=== PATIENT | male | born 1955 | race Caucasian/White ===

== ENCOUNTER 2019-12-14 17:19 | Inpatient (IN) | payer MEDICARE, MEDICAID ==
[2019-12-14] MEDS ORDERED: Maalox 30 mL Cup PO PRN (21:08)
[2019-12-14] MEDS ORDERED: Magnesium Hydroxide (MOM) 30 mL UDC PO PRN (21:08)
[2019-12-15 06:38] VITALS: BP 137/87
[2019-12-15] MEDS: Multivitamin Tab PO SCH (09:19)
--- NOTE | 2019-12-15 18:24 | Psychiatric Evaluation ---
DATE OF SERVICE: 12/15/2019 JUSTIFICATION FOR HOSPITALIZATION: The patient was apparently threatening towards family. HISTORY OF PRESENT ILLNESS: A 64-year-old male who states he is here for "vacation time," attested being aggressive at home, being aggressive towards family, upset with daughter, daughter upset with him. Stating his daughter put him here, "she was angry." She knows the system, not the best historian, unclear what the fight was all about, not really telling me much, just telling me that he was angry and upset and daughter got mad at him. Staff is noting he is preoccupied, unpredictable. PAST PSYCHIATRIC HISTORY: Denies. FAMILY HISTORY: Unclear. SOCIAL HISTORY: States he was born in [facility]. , living in [place] with , daughter. Erratic use of THC, but per charting noting cocaine, meth, alcohol as well. MEDICATIONS: Noted. MENTAL STATUS EXAMINATION: Stated age. Fair eye contact, appearing somewhat younger than his stated age. Mood "okay." Affect flat. Thought processes were grossly linear, although guarded, evasive with questioning, not the best historian. No SI or HI, but was aggressive at home, concerns for underlying psychosis. Poor insight, poor judgment, poor impulse control. PROVISIONAL DIAGNOSES: Mood, unspecified; anxiety, unspecified; polysubstance use disorder. MEDICAL DIAGNOSES: Please see full H and P. ESTIMATED LENGTH OF STAY: 7-10 days. ASSESSMENT: The patient requiring hospitalization, aggressive, agitated, threatening towards family. PLAN: We will attempt to increase collateral. TREATMENT PLAN: Includes group as well as milieu therapy. CONDITIONS FOR DISCHARGE: Improved mood, improved affect, better control of any agitation. JOB# [id number]
--- NOTE | 2019-12-15 18:28 | Consultation ---
DATE OF CONSULTATION: 12/15/2019 CHIEF COMPLAINT: Combativeness. HISTORY OF PRESENT ILLNESS: We have a 64-year-old male with a history of diabetes, hypertension, who was transferred from [facility]. The patient was found to have polysubstance drug intoxication. The patient was apparently combative with family members and was brought here. PAST MEDICAL HISTORY: Diabetes, hypertension. PAST SURGICAL HISTORY: None. MEDICATIONS: List is reviewed. SOCIAL HISTORY: The patient does admit to multiple drug abuse. PHYSICAL EXAMINATION: VITAL SIGNS: Temperature is 97.7, pulse 62, respirations 17, blood pressure 137/87. HEENT: Normocephalic, atraumatic head exam. NECK: Supple. CARDIOVASCULAR: Regular rate and rhythm. LUNGS: Clear. ABDOMEN: Soft, nontender. EXTREMITIES: No edema, cyanosis or clubbing. ASSESSMENT AND PLAN: 1. Polysubstance drug abuse. 2. Agitation, combativeness. 3. Diabetes. 4. Hypertension. The patient will have TSH, hemoglobin A1c, lipid panel, CBC, CMP performed and will go from there. His hemoglobin A1c is elevated. We will start the patient on metformin or some other diabetic medication. JOB# [id number]
[2019-12-16] MEDS: Multivitamin Tab PO SCH (08:32)
--- NOTE | 2019-12-16 17:50 | Progress Notes ---
DATE: 12/16/2019 SUBJECTIVE: No fevers, chills, night sweats. The patient denies any pain. No nausea or vomiting. The patient is tolerating p.o. intake. OBJECTIVE: VITAL SIGNS: Temperature is 97.4, pulse 76, respirations 20, and blood pressure 142/82. HEENT: Normocephalic, atraumatic head exam. NECK: Supple. CARDIOVASCULAR: Regular rate and rhythm. LUNGS: Decreased breath sounds. ABDOMEN: Soft, nontender. EXTREMITIES: No edema, cyanosis or clubbing. LABORATORY DATA: Still pending unfortunately. ASSESSMENT: 2. Diabetes. 3. Hypertension. 4. Polysubstance abuse. 5. Agitation. PLAN: Blood sugars in the Geropsych Unit are within normal limits, although he has refused a few readings. Blood pressure is being monitored, which was on the high side, systolic is 142. At this time, we will continue to monitor. We will not start any medication until anxiety slightly better. The patient will be advised to eat low salt diet. JOB# [id number]
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
[2019-12-17] MEDS: Multivitamin Tab PO SCH (08:18)
--- NOTE | 2019-12-17 08:55 | Progress Notes ---
DATE: 12/17/2019 SUBJECTIVE: The patient is complaining of blisters on his upper lip. The patient claims that this is painful and he has had multiple recurrences in the past. Otherwise, denies any chest pain, shortness of breath, nausea, vomiting, abdominal pain, or diarrhea. No rectal bleeding or melena. OBJECTIVE: VITAL SIGNS: Temperature is 96.8, pulse of 83, blood pressure 129/89, satting 100% on room air. Blood sugar is 113. I's and O's are intake 240, output is 400. Weight is 44.452. HEENT: Normocephalic, atraumatic head exam. NECK: Supple. CARDIOVASCULAR: Regular rate and rhythm. LUNGS: Clear. ABDOMEN: Soft, nontender. EXTREMITIES: No edema, cyanosis or clubbing. SKIN: Left upper lip has a blister. ASSESSMENT AND PLAN: 1. Herpes. 2. Diabetes. 3. Hypertension. 4. Polysubstance abuse. 5. Agitation. At this time, the patient will be started on acyclovir 400 mg 5 times a day for 6 days. Hopefully, this will relieve the pain. I have discussed the care plan with the nursing staff. Discussed care plan with the patient, overall prognosis for herpes is favorable. JOB# [id number]
[2019-12-17] MEDS ORDERED: GLUCAGON HCl 1 MG KIT IM PRN (19:45)
[2019-12-17] MEDS: INSULIN LISPRO SLIDING SCALE 100 UNITS/ML UNIT SUBQ SCH (21:18)
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
[2019-12-18] MEDS: INSULIN LISPRO SLIDING SCALE 100 UNITS/ML UNIT SUBQ SCH ×4 (06:52→21:02)
[2019-12-18] MEDS: Fish Oil 1,000 MG SGL PO SCH (08:27)
[2019-12-18] MEDS: Multivitamin Tab PO SCH (08:27)
--- NOTE | 2019-12-18 22:36 | Progress Notes ---
DATE: 12/18/2019 Dr. Lopez covering for Dr. Bingham. SUBJECTIVE: The patient was interviewed. Case was discussed with staff. Chart and records were reviewed. Per the staff, the patient has been hyperverbal, has been very hyper bahai on the unit, has been making disorganized statements. The patient was interviewed at bedside. The patient continues to be very hyper-bahai, very focused on God and the devil. The patient's statements are very difficult to follow, very disorganized. The patient has no plan for self-care at this time. He is unable to state why he is in the hospital. He has very poor insight into his condition and no plan for self-care. MENTAL STATUS EXAMINATION: The patient is sitting up at the edge of the bed. He is disheveled with poor eye contact. His speech at times is mumbled. His mood and affect appear to be blunted. Thought process appears to be loose at this time. Unable to assess for suicidal or homicidal thoughts. The patient does appear to be internally preoccupied, also paranoid and hyper bahai. He is alert and oriented to person and place. Insight, judgment and impulse control appears to be poor. ASSESSMENT: The patient is a 64-year-old male, admitted to [facility], admitted on 12/14/2019 after the patient became aggressive at home and aggressive towards his family. The patient at this time continues with psychosis, continues to be hyper bahai delusional, also very disheveled and has no plan for self-care and also has very poor insight into his condition. PLAN: We will continue the patient's acute hospitalization. Continue medications as prescribed. Encourage the patient to verbalize his needs and participate in group and milieu therapy. JOB# [id number]
[2019-12-19] MEDS: INSULIN LISPRO SLIDING SCALE 100 UNITS/ML UNIT SUBQ SCH ×4 (06:37→21:36)
[2019-12-19] MEDS: Fish Oil 1,000 MG SGL PO SCH (08:31)
[2019-12-19] MEDS: Multivitamin Tab PO SCH (08:32)
--- NOTE | 2019-12-19 22:41 | Progress Notes ---
DATE: 12/19/[address] Bingham. SUBJECTIVE: The patient was interviewed. Case was discussed with staff. Chart and records were reviewed. Per the staff, the patient continues to be hyperverbal, hyper gnosticism, making disorganized and delusional statements about God and the devil on the unit. The patient is interviewed in the dayroom. The patient is with fair engagement with the interview, but continues to be rambling about his delusional statements. He has poor insight into his condition. He has no plan for self-care. He is difficult to redirect and appears to be tolerating his medications well with no side effects. MENTAL STATUS EXAMINATION: The patient is sitting in the day room chair, disheveled with improved eye contact. Speech is hyperverbal. Mood and affect appear to be blunted. Thought process appears to be loose at this time. No evidence of any suicidal or homicidal thoughts at this time. The patient is internally preoccupied, appears to be paranoid and hyper gnosticism, alert and oriented to person and place. Insight, judgment and impulse control appear to be poor. ASSESSMENT: A 64-year-old male admitted to [facility] admitted on 12/14/2019 after the patient became aggressive at home and aggressive towards his family. The patient at this time continues with psychosis and making very delusional statements, has poor insight into his condition, is disheveled, has no plan for self-care. PLAN: We will continue the patient's hospitalization. We will continue medications as prescribed. We will encourage patient to verbalize his needs and participate in group and milieu therapy. JOB# [id number]
[2019-12-20] MEDS: INSULIN LISPRO SLIDING SCALE 100 UNITS/ML UNIT SUBQ SCH ×4 (06:42→21:06)
[2019-12-20] MEDS: Fish Oil 1,000 MG SGL PO SCH (08:30)
[2019-12-20] MEDS: Multivitamin Tab PO SCH (08:30)
--- NOTE | 2019-12-20 12:39 | Progress Notes ---
DATE: 12/20/2019 SUBJECTIVE: The blisters are feeling better. The patient has no chest pain or shortness of breath. No nausea, vomiting, abdominal pain, or diarrhea. PHYSICAL EXAMINATION: VITAL SIGNS: Temperature is 97.6, pulse 71, respirations 20, blood pressure 140/89, satting 99% on room air. HEENT: Normocephalic, atraumatic head exam. NECK: Supple. CARDIOVASCULAR: Regular rate and rhythm. LUNGS: Clear. ABDOMEN: Soft, nontender. EXTREMITIES: No edema, cyanosis or clubbing. ASSESSMENT: 1. Herpetic lesion of lip. 2. Polysubstance drug abuse. 3. Psychosis. 4. Diet-controlled diabetes. PLAN: The patient will continue with acyclovir 400 mg t.i.d. for the herpes. The patient has had no falls or abusive behavior with nurses. The patient does not have any gait instability. The patient will continue with supportive care. I have reviewed the glucoscan diary for the patient and discussed with Jose R JOB# [id number] MTDD
[2019-12-21] MEDS: INSULIN LISPRO SLIDING SCALE 100 UNITS/ML UNIT SUBQ SCH ×4 (06:38→20:57)
[2019-12-21] MEDS: Fish Oil 1,000 MG SGL PO SCH (08:58)
[2019-12-21] MEDS: Multivitamin Tab PO SCH (08:58)
--- NOTE | 2019-12-21 13:24 | Progress Notes ---
DATE: 12/20/2019 Case was discussed with staff of the patient, reviewed records. This is a 54-year-old male. He believes that he was here for a vacation time. He was aggressive at home towards his family upset with his daughter. Daughter was upset with him. He was angry. He stated that she knows the system. He was not the best historian. He was born [facility], , living in [place] with his and daughter, using marijuana. Also, according to the chart, there has been cocaine and meth and alcohol as well. The patient was diagnosed with unspecified mood disorder. The patient was started on Risperdal 0.25 mg twice a day. The patient continues to be somewhat hyperverbal, continues to be disheveled, isolating himself, internally preoccupied at times, hyperverbal. I have decreasing his Risperdal dose to 0.5 mg twice a day. No side effects with the medication, no sedation, no nausea, no extrapyramidal symptoms. Also, working on discharge plan and will continue outpatient group therapy, milieu therapy, and adjust medications as needed. JOB# [id number]
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
--- NOTE | 2019-12-21 18:17 | Progress Notes ---
DATE: 12/21/2019 SUBJECTIVE: The patient appears to be more pleasant. The patient has no problems with gait. The patient has not had any falls. OBJECTIVE: VITAL SIGNS: Temperature is 98.2, pulse 85, respirations 20, blood pressure 145/97. HEENT: Normocephalic, atraumatic head exam. NECK: Supple. CARDIOVASCULAR: Regular rate and rhythm. LUNGS: Clear. ABDOMEN: Soft, nontender. EXTREMITIES: No edema, cyanosis or clubbing. LABORATORY DATA: Blood sugar reports show blood sugar 123, next is 175, next is 76. Hemoglobin A1c 5.5. ASSESSMENT AND PLAN: 1. Diabetes. 2. Polysubstance drug abuse. 3. Herpetic lesion on the left. 4. Psychosis. At this time, the patient's blood sugars appear to be appropriate. No diet modification is necessary. No need for starting any medical therapy. The patient's herpetic lesion is also improving slowly. JOB# [id number]
[2019-12-22] MEDS: INSULIN LISPRO SLIDING SCALE 100 UNITS/ML UNIT SUBQ SCH ×4 (07:03→21:49)
[2019-12-22] MEDS: Fish Oil 1,000 MG SGL PO SCH (09:32)
[2019-12-22] MEDS: Multivitamin Tab PO SCH (09:33)
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
[2019-12-23] MEDS: INSULIN LISPRO SLIDING SCALE 100 UNITS/ML UNIT SUBQ SCH ×4 (06:44→20:27)
[2019-12-23] MEDS: Multivitamin Tab PO SCH (08:46)
[2019-12-23] MEDS: Fish Oil 1,000 MG SGL PO SCH (08:46)
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
--- NOTE | 2019-12-23 20:04 | Progress Notes ---
DATE: 12/23/2019 SUBJECTIVE: The patient has no specific complaints. Denies chest pain, shortness of breath, nausea, vomiting, abdominal pain, or diarrhea. PHYSICAL EXAMINATION: VITAL SIGNS: Temperature 98.9, pulse 70, respirations 12, blood pressure 115/66. HEENT: Normocephalic, atraumatic head exam. NECK: Supple. CARDIOVASCULAR: Regular rate and rhythm. LUNGS: Clear. ABDOMEN: Soft, nontender. EXTREMITIES: No edema, cyanosis or clubbing. ASSESSMENT AND PLAN: 1. Herpetic lesion on the lip. 2. Diabetes. 3. Polysubstance drug abuse. 4. Psychosis. The patient's herpetic lesion is slowly healing. The patient will continue with Zovirax 400 mg p.o. t.i.d. Discussed care plan with nursing staff who states patient has not had any fall or had any gait instability. JOB# [id number]
[2019-12-24] MEDS: INSULIN LISPRO SLIDING SCALE 100 UNITS/ML UNIT SUBQ SCH ×4 (06:57→21:37)
[2019-12-24] MEDS: Fish Oil 1,000 MG SGL PO SCH (08:27)
[2019-12-24] MEDS: Multivitamin Tab PO SCH (08:27)
--- NOTE | 2019-12-24 13:21 | Progress Notes ---
DATE: 12/24/2019 SUBJECTIVE: The patient denies any chest pain, shortness of breath, nausea, vomiting, or abdominal pain. OBJECTIVE: VITAL SIGNS: Temperature is 97.6, pulse 88, respirations 20, blood pressure is 143/90, and saturating 99% on room air. HEENT: Normocephalic and atraumatic head exam. NECK: Supple. CARDIOVASCULAR: Regular rate and rhythm. LUNGS: Decreased breath sounds. ABDOMEN: Soft, nontender. ASSESSMENT AND PLAN: 1. Herpes lesion. 2. Polysubstance drug abuse. The patient will continue supportive care. The patient will continue with Zovirax 400 mg p.o. t.i.d. until it finished. JOB# [id number]
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
[2019-12-25] MEDS: INSULIN LISPRO SLIDING SCALE 100 UNITS/ML UNIT SUBQ SCH ×4 (06:35→21:05)
[2019-12-25] MEDS: Multivitamin Tab PO SCH (08:07)
[2019-12-25] MEDS: Fish Oil 1,000 MG SGL PO SCH (08:07)
--- NOTE | 2019-12-25 19:08 | Progress Notes ---
DATE: 12/25/2019 IDENTIFYING DATA: A 64-year-old male brought in here for aggressive behavior at home and towards family. Nursing staff reporting he wanders around the unit organized. Today on [id number] evaluation, easily angry reporting that he was at home and that he is in disagreement with his . Continue to distress. MENTAL STATUS EXAMINATION: Irritable, agitated, and anxious during the interview. ASSESSMENT AND PLAN: The patient with still ongoing suspicious and agitated behavior. He continues to have hyperverbal statement. We will continue with primary psychiatrist's treatment plan and goals, which include Adult Protective Services, calling the police once the patient stabilized and discharged. JOB# [id number]
[2019-12-26] MEDS: INSULIN LISPRO SLIDING SCALE 100 UNITS/ML UNIT SUBQ SCH ×4 (06:30→20:40)
[2019-12-26] MEDS: Multivitamin Tab PO SCH (09:02)
[2019-12-26] MEDS: Fish Oil 1,000 MG SGL PO SCH (09:02)
--- NOTE | 2019-12-26 23:32 | Progress Notes ---
DATE: SUBJECTIVE: The patient was seen and evaluated. The patient's chart reviewed. Nursing staff reporting the patient intermittently stays in his room and that he is less hyperverbal. Today on [id number] evaluation, the patient is able to present more coherent, linear and reporting that he does not want to communicate with his because his does not understand him. He has been compliant with medication. ____ also recognized the importance of anger management therapy. MENTAL STATUS EXAMINATION: Mild progress has been noted. More insight in regards to anger and irritability that he has been experiencing prior to hospitalization and better insight in regard to movement, engaging in anger management therapy. ASSESSMENT AND PLAN: History of bipolar. We will continue with primary psychiatrist's treatment plan and goals as medication continue to reach steady state. JOB# [id number]
[2019-12-27] MEDS: INSULIN LISPRO SLIDING SCALE 100 UNITS/ML UNIT SUBQ SCH ×4 (06:32→20:59)
[2019-12-27] MEDS: Multivitamin Tab PO SCH (08:05)
[2019-12-27] MEDS: Fish Oil 1,000 MG SGL PO SCH (08:05)
--- NOTE | 2019-12-27 14:13 | General Progress Note ---
Subjective - Review of Systems Service Date: 12/27/19 (Note created by dr. mathias) Events since last encounter: no events no falls no gait instability Subjective: denies any chest pain, sob, nausea, vomiting, abdominal pain Objective - Results Recent Labs: Laboratory Last Values POC Glucose 99 MG/DL (70 - 105) 12/27/19 11:51 - Physical Exam Vitals and I&O: Vital Signs Temp 97.5 F 12/27/19 06:43 Pulse 75 12/27/19 06:43 Resp 18 12/27/19 08:00 BP 148/97 12/27/19 06:43 Pulse Ox 98 12/27/19 06:43 Intake & Output 12/26/19 12/27/19 12/27/19 18:59 06:59 18:59 Intake Total 350 750 Output Total 350 Balance 0 750 Intake: Oral 350 750 Output: Urine 350 Other: # Voids 1 # Bowel Movements 0 Active Medications: Current Medications Acetaminophen (Tylenol) 650 mg PO Q4H PRN PRN Reason: Pain (Mild 1-3) Stop: 02/12/20 21:07 Last Admin: 12/23/19 20:25 Dose: 650 mg Al Hydrox/Mg Hydrox/Simethicone (Maalox) 30 ml PO Q4HR PRN PRN Reason: GI DISTRESS Stop: 02/12/20 21:07 Dextrose (Glutose 40%) 18.75 gm PO PRN PRN PRN Reason: BS Below 70 if tolerate po Stop: 02/15/20 19:44 Fish Oil ([place] 3) 1,000 mg PO DAILY PILLO Stop: 02/16/20 08:59 Last Admin: 12/27/19 08:05 Dose: 1,000 mg Glucagon (Glucagen) 1 mg IM PRN PRN PRN Reason: BS Below 70 if not tolerate po Stop: 02/15/20 19:44 Insulin Human Lispro (Humalog Insulin Sliding Scale) 0 units SUBQ ACHS PILLO; Protocol Stop: 02/15/20 20:59 Last Admin: 12/27/19 11:57 Dose: Not Given Lorazepam (Ativan) 0.5 mg PO Q6HR PRN; Protocol PRN Reason: Anxiety Stop: 02/20/20 11:06 Last Admin: 12/26/19 21:36 Dose: 0.5 mg Magnesium Hydroxide (Milk Of Magnesia) 30 ml PO HS PRN PRN Reason: Constipation Multivitamins/Vitamin C (Theragran) 1 tab PO DAILY PILLO Stop: 02/13/20 08:59 Last Admin: 12/27/19 08:05 Dose: 1 tab Risperidone (Risperdal) 0.75 mg PO BID PILLO; Protocol Stop: 02/25/20 16:59 Zolpidem Tartrate (Ambien) 5 mg PO HS PRN PRN Reason: Insomnia Stop: 02/18/20 20:46 Last Admin: 12/26/19 23:03 Dose: 5 mg General: Alert, Oriented x3 HEENT: EOMI Neck: Supple, JVD Cardiovascular: Regular rate, Normal S1, Normal S2 Lungs: Clear to auscultation, Normal air movement Abdomen: Bowel sounds, Distended, Rebound Extremities: Clubbing Neurological: Normal gait, Normal speech Skin: Rash Psych/Mental Status: Mental status NL Assessment/Plan - Assessment Assessment: 1. Herpes lesion of lip 2. Hx of polysubstance abuse - Plan Plan: continue same meds antiviral has been stopped Nutritional Asmnt/Malnutr-PDOC - Dietary Evaluation Malnutrition Findings (Please click <Entered> for more info): Nutritional Asmnt/Malnutrition Start: 12/15/19 12: 32 Text: Status: Complete Freq: Protocol: Document 12/17/19 16:47 CRISS (Rec: 12/17/19 16:53 [id number] [id number]) Nutritional Asmnt/Malnutrition Patient General Information Nutritional Screening High Risk Diagnosis Psychosis Pertinent Medical Hx/Surgical Hx DM, HTN Subjective Information Pt is currently eating an estimated 70% since admit date (x2 days) per Meal/Nutrition Activity Record. Dietary is currently providing an estimated 3000 kcals and 130 gm Pro. Per pt PO intake, this is providing an estimated 2100 kcals and 90 gm Pro, to meet 100+% kcal and 100+% Pro needs-adequate to promote/ support gradual weight gain. Visited pt in late afternoon. Pt stated he has been eating good and likes his strawberry shakes (Ensure). He stated he does want to gain some weight and is drinking the Ensure to get vitamins to help with his dry skin. Pt allowed me to perform a Nutrition focused Physical Examination while talking to him. Pt was very pleasant, talkative, and cooperative. Spoke with pt nurse Tyree regarding exam results and recommendation to add fish oil to medication regimen to help with dry, scaly skin. Pt downgraded to moderate nutritional risk as pt is exceeding estimated nutritional needs, adequate to promote/support gradual weight gain. Head and Face (Mild to Moderate Malnutrition) Orbital region: slightly dark circles, somewhat hollow Buccal Region: Flat cheeks, minimal bounce [place] region: could not assess with hair Upper Body (Mild to Moderate Malnutrition) Clavicle Bone Region: Clavicle shows with some protrusion Acromion Bone Region: Acromion process slightly protruded, shoulders not square Ribs/Midaxillary Line (Mild to Moderate Malnutrition) Thoracic and Lumbar Region: Ribs are apparent with slightly visible depressions between them Lower Extremities (Mild to Moderate Malnutrition) Patellar Region: Kneecap is more prominent Posterior Calf Region: Less- developed bulb of muscle Hair, Nails and Skin Dry, scaly skin Hair and nails looked good Anthropometrics HT: 53 WT: 98 LB (44.55 kg) BMI: 17.36 (underweight) GI/ Skin Integrity GI: WNL, Soft, Flat, Non- tender BM: 12/14 x1 I/O: 400/Not Noted Skin: WNL, Intact, dryness Serafin: 20 Diet Order: Regular Estimated Energy Needs: ( Underweight, CBW) 2613-2482 kcals (30-35 kcals/ kg) 50-60g Pro (1.2-1.3 g/kg) 6438-4739 ml (30-35 ml/kg) Current Diet Order/ Nutrition Support Regular Pertinent Medications Maalox (PRN), MOM (PRN), Theragran Pertinent Labs POC Glucose (last 24 hours) 113 4/9: Ca 8.3, GFR 55, Alb 3.1 Nutritional Hx/Data Height 1.6 m Height (Calculated Centimeters) 160.0 Current Weight (lbs) 44.452 kg Weight (Calculated Kilograms) 44.5 Weight (Calculated Grams) 24591.1 [place] Body Weight 124 LB (56.36 kg) % [place] Body Weight 79 Body Mass Index (BMI) 17.3 Weight Status Underweight GI Symptoms Last BM 12/14 x1 Skin Integrity/Comment: Skin: WNL, Intact, dryness Serafin: 20 Recommend adding fish oil to medication regimen d/t dry and scaly skin. Current %PO Fair (50-74%) Estimated Nutritional Goals BEE in Kcals: Using Current wt Calories/Kcals/Kg 30-35 Kcals Calculated 4567-5883 Protein: Using Current wt Protein g/k.2-1.3 Protein Calculated 50-60 Fluid: ml 8479-0129 ml (30-35 ml/kg) Nutritional Problem 2. Problem Problem Moderate to Mild Malnutrition Etiology r/t inadequate energy and protein intake with lack of nutrient dense foods Signs/Symptoms: aeb mild to moderate muscle and fat wasting noted on exam with some clavicle, Acromion, and kneecap protrusion, slightly visible ribs, and Less-developed bulb of posterior calf muscle, and dry , scaly skin. 1. Problem Problem Underweight Etiology r/t consistent energy underconsumption Signs/Symptoms: aeb BMI <18.50 (17.36). Malnutrition Alert Body Fat Depletion (Non-Severe) Mild Depletion Muscle Mass (Non-Severe) Mild Depletion Fluid Accumulation (N/A) N/A Is there a minimum of two criteria Yes selected? Query Text:Check all the applicable criteria. A minimum of two criteria are recommended for diagnosis of either severe or non-severe malnutrition. Malnutrition Related to Morbid Obesity Malnutrition related to morbid obesity No Intervention/Recommendation Comments 1.Continue Regular diet as tolerated. 2.Continue Ensure Enlive TID. 3.Weekly weights. 4. Recommend adding fish oil to medication regimen. Expected Outcomes/Goals Expected Outcomes/Goals 1.PO intake to meet 75% of estimated nutritional needs. 2.Gradual weight gain (0.5-1.0 Lb/week) trending toward IBW preferred. 3.Monitor PO intake, wt, nutrition related labs, and skin integrity. 4.F/U as moderate risk in 3-5 days, 12/19-12/21
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
[2019-12-28] MEDS: INSULIN LISPRO SLIDING SCALE 100 UNITS/ML UNIT SUBQ SCH ×4 (06:48→21:07)
[2019-12-28] MEDS: Multivitamin Tab PO SCH (08:21)
[2019-12-28] MEDS: Fish Oil 1,000 MG SGL PO SCH (08:22)
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
[2019-12-29] MEDS: INSULIN LISPRO SLIDING SCALE 100 UNITS/ML UNIT SUBQ SCH ×5 (06:39→21:05)
[2019-12-29] MEDS: Multivitamin Tab PO SCH (08:52)
[2019-12-29] MEDS: Fish Oil 1,000 MG SGL PO SCH (08:52)
--- NOTE | 2019-12-29 10:06 | Internal Medicine Prog Note ---
Internal Medicine Subjective - Subjective Service Date: 12/29/19 Patient seen and examined:: with staff, chart reviewed Patient is:: awake, verbal, interactive, ambulating Per staff patient has:: no adverse event, no episodes of fall (ambulating on floor extensively) Internal Medicine Objective - Results Recent Labs: Laboratory Last Values POC Glucose 123 MG/DL (70 - 105) H 12/28/19 20:27 - Physical Exam Vitals and I&O: Vital Signs Temp 97.5 F 12/29/19 06:07 Pulse 83 12/29/19 06:07 Resp 20 12/29/19 06:07 BP 147/110 12/29/19 06:07 Pulse Ox 97 12/29/19 06:07 Intake & Output 12/28/19 12/29/19 12/29/19 18:59 06:59 18:59 Intake Total 1200 600 Balance 1200 600 Intake: Oral 1200 600 Other: # Voids 4 2 # Bowel Movements 1 0 Active Medications: Current Medications Acetaminophen (Tylenol) 650 mg PO Q4H PRN PRN Reason: Pain (Mild 1-3) Stop: 02/12/20 21:07 Last Admin: 12/28/19 12:15 Dose: 650 mg Al Hydrox/Mg Hydrox/Simethicone (Maalox) 30 ml PO Q4HR PRN PRN Reason: GI DISTRESS Stop: 02/12/20 21:07 Dextrose (Glutose 40%) 18.75 gm PO PRN PRN PRN Reason: BS Below 70 if tolerate po Stop: 02/15/20 19:44 Fish Oil ([place] 3) 1,000 mg PO DAILY PILLO Stop: 02/16/20 08:59 Last Admin: 12/29/19 08:52 Dose: 1,000 mg Glucagon (Glucagen) 1 mg IM PRN PRN PRN Reason: BS Below 70 if not tolerate po Stop: 02/15/20 19:44 Insulin Human Lispro (Humalog Insulin Sliding Scale) 0 units SUBQ ACHS PILLO; Protocol Stop: 02/15/20 20:59 Last Admin: 12/29/19 06:39 Dose: Not Given Lorazepam (Ativan) 0.5 mg PO Q6HR PRN; Protocol PRN Reason: Anxiety Stop: 02/20/20 11:06 Last Admin: 12/28/19 22:20 Dose: 0.5 mg Magnesium Hydroxide (Milk Of Magnesia) 30 ml PO HS PRN PRN Reason: Constipation Multivitamins/Vitamin C (Theragran) 1 tab PO DAILY PILLO Stop: 02/13/20 08:59 Last Admin: 12/29/19 08:52 Dose: 1 tab Risperidone (Risperdal) 0.75 mg PO BID PILLO; Protocol Stop: 02/25/20 16:59 Last Admin: 12/29/19 08:52 Dose: 0.75 mg Zolpidem Tartrate (Ambien) 5 mg PO HS PRN PRN Reason: Insomnia Stop: 02/18/20 20:46 Last Admin: 12/28/19 21:08 Dose: 5 mg General: NAD HEENT: NC/AT, EOMI Neck: Supple, No JVD Lungs: CTAB Cardiovascular: RRR, Normal S1, Normal S2 Abdomen: soft, non-tender Extremities: clear Neurological: alert Internal Medicine Assmt/Plan - Assessment Assessment: 1. Herpes lesion of lip 2. Hx of polysubstance abuse 3. DM/HTN 4. Agitation - Plan Plan: blood sugar diary shows controlled sugars BP controlled continue same meds continue accu checks q 6 hours PRN Nutritional Asmnt/Malnutr-PDOC - Dietary Evaluation Malnutrition Findings (Please click <Entered> for more info): Nutritional Asmnt/Malnutrition Start: 12/15/19 12: 32 Text: Status: Complete Freq: Protocol: Document 12/17/19 16:47 CRISS (Rec: 12/17/19 16:53 CRISS [id number] [id number]) Nutritional Asmnt/Malnutrition Patient General Information Nutritional Screening High Risk Diagnosis Psychosis Pertinent Medical Hx/Surgical Hx DM, HTN Subjective Information Pt is currently eating an estimated 70% since admit date (x2 days) per Meal/Nutrition Activity Record. Dietary is currently providing an estimated 3000 kcals and 130 gm Pro. Per pt PO intake, this is providing an estimated 2100 kcals and 90 gm Pro, to meet 100+% kcal and 100+% Pro needs-adequate to promote/ support gradual weight gain. Visited pt in late afternoon. Pt stated he has been eating good and likes his strawberry shakes (Ensure). He stated he does want to gain some weight and is drinking the Ensure to get vitamins to help with his dry skin. Pt allowed me to perform a Nutrition focused Physical Examination while talking to him. Pt was very pleasant, talkative, and cooperative. Spoke with pt nurse Tyree regarding exam results and recommendation to add fish oil to medication regimen to help with dry, scaly skin. Pt downgraded to moderate nutritional risk as pt is exceeding estimated nutritional needs, adequate to promote/support gradual weight gain. Head and Face (Mild to Moderate Malnutrition) Orbital region: slightly dark circles, somewhat hollow Buccal Region: Flat cheeks, minimal bounce [place] region: could not assess with hair Upper Body (Mild to Moderate Malnutrition) Clavicle Bone Region: Clavicle shows with some protrusion Acromion Bone Region: Acromion process slightly protruded, shoulders not square Ribs/Midaxillary Line (Mild to Moderate Malnutrition) Thoracic and Lumbar Region: Ribs are apparent with slightly visible depressions between them Lower Extremities (Mild to Moderate Malnutrition) Patellar Region: Kneecap is more prominent Posterior Calf Region: Less- developed bulb of muscle Hair, Nails and Skin Dry, scaly skin Hair and nails looked good Anthropometrics HT: 53 WT: 98 LB (44.55 kg) BMI: 17.36 (underweight) GI/ Skin Integrity GI: WNL, Soft, Flat, Non- tender BM: 12/14 x1 I/O: 400/Not Noted Skin: WNL, Intact, dryness Serafin: 20 Diet Order: Regular Estimated Energy Needs: ( Underweight, CBW) 3509-3258 kcals (30-35 kcals/ kg) 50-60g Pro (1.2-1.3 g/kg) 7424-8418 ml (30-35 ml/kg) Current Diet Order/ Nutrition Support Regular Pertinent Medications Maalox (PRN), MOM (PRN), Theragran Pertinent Labs POC Glucose (last 24 hours) 113 4/: Ca 8.3, GFR 55, Alb 3.1 Nutritional Hx/Data Height 1.6 m Height (Calculated Centimeters) 160.0 Current Weight (lbs) 44.452 kg Weight (Calculated Kilograms) 44.5 Weight (Calculated Grams) 93701.1 [place] Body Weight 124 LB (56.36 kg) % [place] Body Weight 79 Body Mass Index (BMI) 17.3 Weight Status Underweight GI Symptoms Last BM 12/14 x1 Skin Integrity/Comment: Skin: WNL, Intact, dryness Serafin: 20 Recommend adding fish oil to medication regimen d/t dry and scaly skin. Current %PO Fair (50-74%) Estimated Nutritional Goals BEE in Kcals: Using Current wt Calories/Kcals/Kg 30-35 Kcals Calculated 7150-9287 Protein: Using Current wt Protein g/k.2-1.3 Protein Calculated 50-60 Fluid: ml 5573-0179 ml (30-35 ml/kg) Nutritional Problem 2. Problem Problem Moderate to Mild Malnutrition Etiology r/t inadequate energy and protein intake with lack of nutrient dense foods Signs/Symptoms: aeb mild to moderate muscle and fat wasting noted on exam with some clavicle, Acromion, and kneecap protrusion, slightly visible ribs, and Less-developed bulb of posterior calf muscle, and dry , scaly skin. 1. Problem Problem Underweight Etiology r/t consistent energy underconsumption Signs/Symptoms: aeb BMI <18.50 (17.36). Malnutrition Alert Body Fat Depletion (Non-Severe) Mild Depletion Muscle Mass (Non-Severe) Mild Depletion Fluid Accumulation (N/A) N/A Is there a minimum of two criteria Yes selected? Query Text:Check all the applicable criteria. A minimum of two criteria are recommended for diagnosis of either severe or non-severe malnutrition. Malnutrition Related to Morbid Obesity Malnutrition related to morbid obesity No Intervention/Recommendation Comments 1.Continue Regular diet as tolerated. 2.Continue Ensure Enlive TID. 3.Weekly weights. 4. Recommend adding fish oil to medication regimen. Expected Outcomes/Goals Expected Outcomes/Goals 1.PO intake to meet 75% of estimated nutritional needs. 2.Gradual weight gain (0.5-1.0 Lb/week) trending toward IBW preferred. 3.Monitor PO intake, wt, nutrition related labs, and skin integrity. 4.F/U as moderate risk in 3-5 days, 12/19-12/21
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
[2019-12-30] MEDS: INSULIN LISPRO SLIDING SCALE 100 UNITS/ML UNIT SUBQ SCH ×4 (06:39→16:25)
[2019-12-30] MEDS: Multivitamin Tab PO SCH (08:49)
[2019-12-30] MEDS: Fish Oil 1,000 MG SGL PO SCH (08:49)
--- NOTE | 2019-12-30 11:40 | Internal Medicine Prog Note ---
Internal Medicine Subjective - Subjective Service Date: 12/30/19 Patient seen and examined:: without staff Patient is:: awake, verbal, interactive, ambulating Per staff patient has:: no adverse event, no episodes of fall (ambulating on floor extensively) Internal Medicine Objective - Results Recent Labs: Laboratory Last Values POC Glucose 110 MG/DL (70 - 105) H 12/29/19 16:35 - Physical Exam Vitals and I&O: Vital Signs Temp 97.2 F 12/30/19 06:07 Pulse 85 12/30/19 06:07 Resp 19 12/30/19 06:07 BP 145/96 12/30/19 06:07 Pulse Ox 99 12/30/19 06:07 Intake & Output 12/29/19 12/30/19 12/30/19 18:59 06:59 18:59 Intake Total 1200 120 Balance 1200 120 Intake: Oral 1200 120 Other: # Voids 1 # Bowel Movements 1 0 Active Medications: Current Medications Acetaminophen (Tylenol) 650 mg PO Q4H PRN PRN Reason: Pain (Mild 1-3) Stop: 02/12/20 21:07 Last Admin: 12/30/19 09:46 Dose: 650 mg Al Hydrox/Mg Hydrox/Simethicone (Maalox) 30 ml PO Q4HR PRN PRN Reason: GI DISTRESS Stop: 02/12/20 21:07 Dextrose (Glutose 40%) 18.75 gm PO PRN PRN PRN Reason: BS Below 70 if tolerate po Stop: 02/15/20 19:44 Fish Oil ([place] 3) 1,000 mg PO DAILY PILLO Stop: 02/16/20 08:59 Last Admin: 12/30/19 08:49 Dose: 1,000 mg Glucagon (Glucagen) 1 mg IM PRN PRN PRN Reason: BS Below 70 if not tolerate po Stop: 02/15/20 19:44 Insulin Human Lispro (Humalog Insulin Sliding Scale) 0 units SUBQ ACHS PILLO; Protocol Stop: 02/15/20 20:59 Last Admin: 12/30/19 06:40 Dose: Not Given Lorazepam (Ativan) 0.5 mg PO Q6HR PRN; Protocol PRN Reason: Anxiety Stop: 02/20/20 11:06 Last Admin: 12/30/19 02:01 Dose: 0.5 mg Magnesium Hydroxide (Milk Of Magnesia) 30 ml PO HS PRN PRN Reason: Constipation Multivitamins/Vitamin C (Theragran) 1 tab PO DAILY PILLO Stop: 02/13/20 08:59 Last Admin: 12/30/19 08:49 Dose: 1 tab Risperidone (Risperdal) 0.75 mg PO BID PILLO; Protocol Stop: 02/25/20 16:59 Last Admin: 12/30/19 08:49 Dose: 0.75 mg Zolpidem Tartrate (Ambien) 5 mg PO HS PRN PRN Reason: Insomnia Stop: 02/18/20 20:46 Last Admin: 12/29/19 23:55 Dose: 5 mg General: NAD HEENT: NC/AT, EOMI Neck: Supple, No JVD Lungs: CTAB Cardiovascular: RRR, Normal S1, Normal S2 Abdomen: soft, non-tender Extremities: clear Neurological: alert Internal Medicine Assmt/Plan - Assessment Assessment: 1. Herpes lesion of lip 2. Hx of polysubstance abuse 3. DM/HTN 4. Agitation - Plan Plan: patient is ambulating and blood sugars are appropriate Nutritional Asmnt/Malnutr-PDOC - Dietary Evaluation Malnutrition Findings (Please click <Entered> for more info): Nutritional Asmnt/Malnutrition Start: 12/15/19 12: 32 Text: Status: Complete Freq: Protocol: Document 12/17/19 16:47 CRISS (Rec: 12/17/19 16:53 CRISS [id number] [id number]) Nutritional Asmnt/Malnutrition Patient General Information Nutritional Screening High Risk Diagnosis Psychosis Pertinent Medical Hx/Surgical Hx DM, HTN Subjective Information Pt is currently eating an estimated 70% since admit date (x2 days) per Meal/Nutrition Activity Record. Dietary is currently providing an estimated 3000 kcals and 130 gm Pro. Per pt PO intake, this is providing an estimated 2100 kcals and 90 gm Pro, to meet 100+% kcal and 100+% Pro needs-adequate to promote/ support gradual weight gain. Visited pt in late afternoon. Pt stated he has been eating good and likes his strawberry shakes (Ensure). He stated he does want to gain some weight and is drinking the Ensure to get vitamins to help with his dry skin. Pt allowed me to perform a Nutrition focused Physical Examination while talking to him. Pt was very pleasant, talkative, and cooperative. Spoke with pt nurse Tyree regarding exam results and recommendation to add fish oil to medication regimen to help with dry, scaly skin. Pt downgraded to moderate nutritional risk as pt is exceeding estimated nutritional needs, adequate to promote/support gradual weight gain. Head and Face (Mild to Moderate Malnutrition) Orbital region: slightly dark circles, somewhat hollow Buccal Region: Flat cheeks, minimal bounce [place] region: could not assess with hair Upper Body (Mild to Moderate Malnutrition) Clavicle Bone Region: Clavicle shows with some protrusion Acromion Bone Region: Acromion process slightly protruded, shoulders not square Ribs/Midaxillary Line (Mild to Moderate Malnutrition) Thoracic and Lumbar Region: Ribs are apparent with slightly visible depressions between them Lower Extremities (Mild to Moderate Malnutrition) Patellar Region: Kneecap is more prominent Posterior Calf Region: Less- developed bulb of muscle Hair, Nails and Skin Dry, scaly skin Hair and nails looked good Anthropometrics HT: 53 WT: 98 LB (44.55 kg) BMI: 17.36 (underweight) GI/ Skin Integrity GI: WNL, Soft, Flat, Non- tender BM: 12/14 x1 I/O: 400/Not Noted Skin: WNL, Intact, dryness Serafin: 20 Diet Order: Regular Estimated Energy Needs: ( Underweight, CBW) 6175-6017 kcals (30-35 kcals/ kg) 50-60g Pro (1.2-1.3 g/kg) 8555-9054 ml (30-35 ml/kg) Current Diet Order/ Nutrition Support Regular Pertinent Medications Maalox (PRN), MOM (PRN), Theragran Pertinent Labs POC Glucose (last 24 hours) 113 4/9: Ca 8.3, GFR 55, Alb 3.1 Nutritional Hx/Data Height 1.6 m Height (Calculated Centimeters) 160.0 Current Weight (lbs) 44.452 kg Weight (Calculated Kilograms) 44.5 Weight (Calculated Grams) 48382.1 [place] Body Weight 124 LB (56.36 kg) % [place] Body Weight 79 Body Mass Index (BMI) 17.3 Weight Status Underweight GI Symptoms Last BM 12/14 x1 Skin Integrity/Comment: Skin: WNL, Intact, dryness Serafin: 20 Recommend adding fish oil to medication regimen d/t dry and scaly skin. Current %PO Fair (50-74%) Estimated Nutritional Goals BEE in Kcals: Using Current wt Calories/Kcals/Kg 30-35 Kcals Calculated 6821-4307 Protein: Using Current wt Protein g/k.2-1.3 Protein Calculated 50-60 Fluid: ml 7283-4167 ml (30-35 ml/kg) Nutritional Problem 2. Problem Problem Moderate to Mild Malnutrition Etiology r/t inadequate energy and protein intake with lack of nutrient dense foods Signs/Symptoms: aeb mild to moderate muscle and fat wasting noted on exam with some clavicle, Acromion, and kneecap protrusion, slightly visible ribs, and Less-developed bulb of posterior calf muscle, and dry , scaly skin. 1. Problem Problem Underweight Etiology r/t consistent energy underconsumption Signs/Symptoms: aeb BMI <18.50 (17.36). Malnutrition Alert Body Fat Depletion (Non-Severe) Mild Depletion Muscle Mass (Non-Severe) Mild Depletion Fluid Accumulation (N/A) N/A Is there a minimum of two criteria Yes selected? Query Text:Check all the applicable criteria. A minimum of two criteria are recommended for diagnosis of either severe or non-severe malnutrition. Malnutrition Related to Morbid Obesity Malnutrition related to morbid obesity No Intervention/Recommendation Comments 1.Continue Regular diet as tolerated. 2.Continue Ensure Enlive TID. 3.Weekly weights. 4. Recommend adding fish oil to medication regimen. Expected Outcomes/Goals Expected Outcomes/Goals 1.PO intake to meet 75% of estimated nutritional needs. 2.Gradual weight gain (0.5-1.0 Lb/week) trending toward IBW preferred. 3.Monitor PO intake, wt, nutrition related labs, and skin integrity. 4.F/U as moderate risk in 3-5 days, 12/19-12/21
--- NOTE | 2019-12-30 19:27 | Progress Notes ---
DATE: 12/30/2019 SUBJECTIVE: Case was discussed with staff of the patient, reviewed records. The patient reports his anger is improving. He is sleeping better, eating better. He denies any current intent to harm himself or anyone. He denies any auditory or visual hallucination or paranoia and denies having any side effects. Working on discharge plan. The apparently wants him home. However, the staff trying to get a nursing facility until the police to give them the okay to have him go home. However, the patient refusing to go to anywhere and no side effects with the medication, no sedation, no nausea, no extrapyramidal symptoms. We will continue outpatient group therapy, milieu therapy, adjust medication as needed. JOB# [id number] MTDD
[2019-12-31] MEDS: INSULIN LISPRO 100 UNIT/ML VIAL SUBQ SCH (07:30)
[2019-12-31] MEDS ORDERED: INSULIN LISPRO 100 UNIT/ML VIAL SUBQ SCH (07:30)
[2019-12-31] MEDS: Multivitamin Tab PO SCH (08:41)
[2019-12-31] MEDS: Fish Oil 1,000 MG SGL PO SCH (08:41)
--- NOTE | 2019-12-31 14:02 | Internal Medicine Prog Note ---
Internal Medicine Subjective - Subjective Service Date: 12/31/19 Patient seen and examined:: without staff Patient is:: awake, verbal, interactive, ambulating Per staff patient has:: no adverse event, no episodes of fall (ambulating on floor extensively) Internal Medicine Objective - Results Recent Labs: Laboratory Last Values POC Glucose 81 MG/DL (70 - 105) 12/31/19 06:14 - Physical Exam Vitals and I&O: Vital Signs Temp 97.9 F 12/31/19 05:46 Pulse 78 12/31/19 05:46 Resp 20 12/31/19 05:46 BP 157/95 12/31/19 05:46 Pulse Ox 100 12/31/19 05:46 Intake & Output 12/30/19 12/31/19 12/31/19 18:59 06:59 18:59 Intake Total 1000 240 Balance 1000 240 Intake: Oral 1000 240 Other: # Voids 3 2 # Bowel Movements 1 0 Active Medications: Current Medications Acetaminophen (Tylenol) 650 mg PO Q4H PRN PRN Reason: Pain (Mild 1-3) Stop: 02/12/20 21:07 Last Admin: 12/30/19 09:46 Dose: 650 mg Al Hydrox/Mg Hydrox/Simethicone (Maalox) 30 ml PO Q4HR PRN PRN Reason: GI DISTRESS Stop: 02/12/20 21:07 Dextrose (Glutose 40%) 18.75 gm PO PRN PRN PRN Reason: BS Below 70 if tolerate po Stop: 02/15/20 19:44 Fish Oil ([place] 3) 1,000 mg PO DAILY PILLO Stop: 02/16/20 08:59 Last Admin: 12/31/19 08:41 Dose: 1,000 mg Glucagon (Glucagen) 1 mg IM PRN PRN PRN Reason: BS Below 70 if not tolerate po Stop: 02/15/20 19:44 Insulin Human Lispro (Humalog) 0 unit SUBQ QDAC PILLO; Protocol Stop: 02/29/20 07:29 Last Admin: 12/31/19 07:30 Dose: Not Given Lorazepam (Ativan) 0.5 mg PO Q6HR PRN; Protocol PRN Reason: Anxiety Stop: 02/20/20 11:06 Last Admin: 12/30/19 14:16 Dose: 0.5 mg Magnesium Hydroxide (Milk Of Magnesia) 30 ml PO HS PRN PRN Reason: Constipation Multivitamins/Vitamin C (Theragran) 1 tab PO DAILY PILLO Stop: 02/13/20 08:59 Last Admin: 12/31/19 08:41 Dose: 1 tab Risperidone (Risperdal) 0.75 mg PO BID PILLO; Protocol Stop: 02/25/20 16:59 Last Admin: 12/31/19 08:41 Dose: 0.75 mg Zolpidem Tartrate (Ambien) 5 mg PO HS PRN PRN Reason: Insomnia Stop: 02/18/20 20:46 Last Admin: 12/30/19 22:06 Dose: 5 mg General: NAD HEENT: NC/AT, EOMI Neck: Supple, No JVD Lungs: CTAB Cardiovascular: RRR, Normal S1, Normal S2 Abdomen: soft, non-tender Extremities: clear Neurological: alert Internal Medicine Assmt/Plan - Assessment Assessment: 1. Herpes lesion of lip 2. Hx of polysubstance abuse 3. DM/HTN 4. Agitation - Plan Plan: continue same care discussed with rcesar Nutritional Asmnt/Malnutr-PDOC - Dietary Evaluation Malnutrition Findings (Please click <Entered> for more info): Nutritional Asmnt/Malnutrition Start: 12/15/19 12: 32 Text: Status: Complete Freq: Protocol: Document 12/17/19 16:47 CRISS (Rec: 12/17/19 16:53 CRISS [email or web address] [id number]) Nutritional Asmnt/Malnutrition Patient General Information Nutritional Screening High Risk Diagnosis Psychosis Pertinent Medical Hx/Surgical Hx DM, HTN Subjective Information Pt is currently eating an estimated 70% since admit date (x2 days) per Meal/Nutrition Activity Record. Dietary is currently providing an estimated 3000 kcals and 130 gm Pro. Per pt PO intake, this is providing an estimated 2100 kcals and 90 gm Pro, to meet 100+% kcal and 100+% Pro needs-adequate to promote/ support gradual weight gain. Visited pt in late afternoon. Pt stated he has been eating good and likes his strawberry shakes (Ensure). He stated he does want to gain some weight and is drinking the Ensure to get vitamins to help with his dry skin. Pt allowed me to perform a Nutrition focused Physical Examination while talking to him. Pt was very pleasant, talkative, and cooperative. Spoke with pt nurse Tyree regarding exam results and recommendation to add fish oil to medication regimen to help with dry, scaly skin. Pt downgraded to moderate nutritional risk as pt is exceeding estimated nutritional needs, adequate to promote/support gradual weight gain. Head and Face (Mild to Moderate Malnutrition) Orbital region: slightly dark circles, somewhat hollow Buccal Region: Flat cheeks, minimal bounce [place] region: could not assess with hair Upper Body (Mild to Moderate Malnutrition) Clavicle Bone Region: Clavicle shows with some protrusion Acromion Bone Region: Acromion process slightly protruded, shoulders not square Ribs/Midaxillary Line (Mild to Moderate Malnutrition) Thoracic and Lumbar Region: Ribs are apparent with slightly visible depressions between them Lower Extremities (Mild to Moderate Malnutrition) Patellar Region: Kneecap is more prominent Posterior Calf Region: Less- developed bulb of muscle Hair, Nails and Skin Dry, scaly skin Hair and nails looked good Anthropometrics HT: 53 WT: 98 LB (44.55 kg) BMI: 17.36 (underweight) GI/ Skin Integrity GI: WNL, Soft, Flat, Non- tender BM: 12/14 x1 I/O: 400/Not Noted Skin: WNL, Intact, dryness Serafin: 20 Diet Order: Regular Estimated Energy Needs: ( Underweight, CBW) 0889-2916 kcals (30-35 kcals/ kg) 50-60g Pro (1.2-1.3 g/kg) 5379-1307 ml (30-35 ml/kg) Current Diet Order/ Nutrition Support Regular Pertinent Medications Maalox (PRN), MOM (PRN), Theragran Pertinent Labs POC Glucose (last 24 hours) 113 4/9: Ca 8.3, GFR 55, Alb 3.1 Nutritional Hx/Data Height 1.6 m Height (Calculated Centimeters) 160.0 Current Weight (lbs) 44.452 kg Weight (Calculated Kilograms) 44.5 Weight (Calculated Grams) 72651.1 [place] Body Weight 124 LB (56.36 kg) % [place] Body Weight 79 Body Mass Index (BMI) 17.3 Weight Status Underweight GI Symptoms Last BM 12/14 x1 Skin Integrity/Comment: Skin: WNL, Intact, dryness Serafin: 20 Recommend adding fish oil to medication regimen d/t dry and scaly skin. Current %PO Fair (50-74%) Estimated Nutritional Goals BEE in Kcals: Using Current wt Calories/Kcals/Kg 30-35 Kcals Calculated 6093-0894 Protein: Using Current wt Protein g/k.2-1.3 Protein Calculated 50-60 Fluid: ml 6392-4810 ml (30-35 ml/kg) Nutritional Problem 2. Problem Problem Moderate to Mild Malnutrition Etiology r/t inadequate energy and protein intake with lack of nutrient dense foods Signs/Symptoms: aeb mild to moderate muscle and fat wasting noted on exam with some clavicle, Acromion, and kneecap protrusion, slightly visible ribs, and Less-developed bulb of posterior calf muscle, and dry , scaly skin. 1. Problem Problem Underweight Etiology r/t consistent energy underconsumption Signs/Symptoms: aeb BMI <18.50 (17.36). Malnutrition Alert Body Fat Depletion (Non-Severe) Mild Depletion Muscle Mass (Non-Severe) Mild Depletion Fluid Accumulation (N/A) N/A Is there a minimum of two criteria Yes selected? Query Text:Check all the applicable criteria. A minimum of two criteria are recommended for diagnosis of either severe or non-severe malnutrition. Malnutrition Related to Morbid Obesity Malnutrition related to morbid obesity No Intervention/Recommendation Comments 1.Continue Regular diet as tolerated. 2.Continue Ensure Enlive TID. 3.Weekly weights. 4. Recommend adding fish oil to medication regimen. Expected Outcomes/Goals Expected Outcomes/Goals 1.PO intake to meet 75% of estimated nutritional needs. 2.Gradual weight gain (0.5-1.0 Lb/week) trending toward IBW preferred. 3.Monitor PO intake, wt, nutrition related labs, and skin integrity. 4.F/U as moderate risk in 3-5 days, 12/19-12/21
--- NOTE | 2019-12-31 21:25 | Progress Notes ---
DATE: Case was discussed with staff of patient, reviewed records. The patient has been isolating himself, staying in his room, sleeping well, eating well. Admits to having anger outbursts using cocaine in the past. No side effects with the medication, no sedation, no nausea, no extrapyramidal symptoms. Tolerating increase in Risperdal. Working on placement. ____ has been involved. Apparently, the decided ____ leave the house so that can go back home. No side effects with the medication, no sedation, no nausea, no extrapyramidal symptoms. The patient will be discharged when the place becomes safe for him and meanwhile, we will continue outpatient group therapy, milieu therapy, and adjust the medications as needed. JOB# [id number]
[2020-01-01] MEDS: INSULIN LISPRO 100 UNIT/ML VIAL SUBQ SCH (06:36)
[2020-01-01] MEDS: Fish Oil 1,000 MG SGL PO SCH (08:33)
[2020-01-01] MEDS: Multivitamin Tab PO SCH (08:33)
--- NOTE | 2020-01-01 13:08 | Internal Medicine Prog Note ---
Internal Medicine Subjective - Subjective Service Date: 01/01/20 Patient seen and examined:: without staff Patient is:: awake, verbal, interactive, ambulating Per staff patient has:: no adverse event, no episodes of fall (ambulating on floor extensively) Internal Medicine Objective - Results Recent Labs: Laboratory Last Values POC Glucose 99 MG/DL (70 - 105) 01/01/20 11:22 - Physical Exam Vitals and I&O: Vital Signs Temp 97.6 F 01/01/20 05:59 Pulse 86 01/01/20 05:59 Resp 20 01/01/20 05:59 BP 158/91 01/01/20 05:59 Pulse Ox 97 01/01/20 05:59 Intake & Output 12/31/19 01/01/20 01/01/20 18:59 06:59 18:59 Intake Total 1000 420 Balance 1000 420 Intake: Oral 1000 420 Other: # Voids 1 # Bowel Movements 1 0 Active Medications: Current Medications Acetaminophen (Tylenol) 650 mg PO Q4H PRN PRN Reason: Pain (Mild 1-3) Stop: 02/12/20 21:07 Last Admin: 12/31/19 17:59 Dose: 650 mg Al Hydrox/Mg Hydrox/Simethicone (Maalox) 30 ml PO Q4HR PRN PRN Reason: GI DISTRESS Stop: 02/12/20 21:07 Dextrose (Glutose 40%) 18.75 gm PO PRN PRN PRN Reason: BS Below 70 if tolerate po Stop: 02/15/20 19:44 Fish Oil ([place] 3) 1,000 mg PO DAILY PILLO Stop: 02/16/20 08:59 Last Admin: 01/01/20 08:33 Dose: 1,000 mg Glucagon (Glucagen) 1 mg IM PRN PRN PRN Reason: BS Below 70 if not tolerate po Stop: 02/15/20 19:44 Insulin Human Lispro (Humalog) 0 unit SUBQ QDAC PILLO; Protocol Stop: 02/29/20 07:29 Last Admin: 01/01/20 06:36 Dose: Not Given Lorazepam (Ativan) 0.5 mg PO Q6HR PRN; Protocol PRN Reason: Anxiety Stop: 02/20/20 11:06 Last Admin: 01/01/20 01:23 Dose: 0.5 mg Magnesium Hydroxide (Milk Of Magnesia) 30 ml PO HS PRN PRN Reason: Constipation Multivitamins/Vitamin C (Theragran) 1 tab PO DAILY PILLO Stop: 02/13/20 08:59 Last Admin: 01/01/20 08:33 Dose: 1 tab Risperidone (Risperdal) 0.75 mg PO BID PILLO; Protocol Stop: 02/25/20 16:59 Last Admin: 01/01/20 08:33 Dose: 0.75 mg Zolpidem Tartrate (Ambien) 5 mg PO HS PRN PRN Reason: Insomnia Stop: 02/18/20 20:46 Last Admin: 12/31/19 21:54 Dose: 5 mg General: NAD HEENT: NC/AT, EOMI Neck: Supple, No JVD Lungs: CTAB Cardiovascular: RRR, Normal S1, Normal S2 Abdomen: soft, non-tender Extremities: clear Neurological: alert Internal Medicine Assmt/Plan - Assessment Assessment: 1. Herpes lesion of lip 2. Hx of polysubstance abuse 3. DM/HTN 4. Agitation - Plan Plan: continue same meds Nutritional Asmnt/Malnutr-PDOC - Dietary Evaluation Malnutrition Findings (Please click <Entered> for more info): Nutritional Asmnt/Malnutrition Start: 12/15/19 12: 32 Text: Status: Complete Freq: Protocol: Document 12/17/19 16:47 CRISS (Rec: 12/17/19 16:53 CRISS [email or web address] [id number]) Nutritional Asmnt/Malnutrition Patient General Information Nutritional Screening High Risk Diagnosis Psychosis Pertinent Medical Hx/Surgical Hx DM, HTN Subjective Information Pt is currently eating an estimated 70% since admit date (x2 days) per Meal/Nutrition Activity Record. Dietary is currently providing an estimated 3000 kcals and 130 gm Pro. Per pt PO intake, this is providing an estimated 2100 kcals and 90 gm Pro, to meet 100+% kcal and 100+% Pro needs-adequate to promote/ support gradual weight gain. Visited pt in late afternoon. Pt stated he has been eating good and likes his strawberry shakes (Ensure). He stated he does want to gain some weight and is drinking the Ensure to get vitamins to help with his dry skin. Pt allowed me to perform a Nutrition focused Physical Examination while talking to him. Pt was very pleasant, talkative, and cooperative. Spoke with pt nurse Tyree regarding exam results and recommendation to add fish oil to medication regimen to help with dry, scaly skin. Pt downgraded to moderate nutritional risk as pt is exceeding estimated nutritional needs, adequate to promote/support gradual weight gain. Head and Face (Mild to Moderate Malnutrition) Orbital region: slightly dark circles, somewhat hollow Buccal Region: Flat cheeks, minimal bounce [place] region: could not assess with hair Upper Body (Mild to Moderate Malnutrition) Clavicle Bone Region: Clavicle shows with some protrusion Acromion Bone Region: Acromion process slightly protruded, shoulders not square Ribs/Midaxillary Line (Mild to Moderate Malnutrition) Thoracic and Lumbar Region: Ribs are apparent with slightly visible depressions between them Lower Extremities (Mild to Moderate Malnutrition) Patellar Region: Kneecap is more prominent Posterior Calf Region: Less- developed bulb of muscle Hair, Nails and Skin Dry, scaly skin Hair and nails looked good Anthropometrics HT: 53 WT: 98 LB (44.55 kg) BMI: 17.36 (underweight) GI/ Skin Integrity GI: WNL, Soft, Flat, Non- tender BM: 12/14 x1 I/O: 400/Not Noted Skin: WNL, Intact, dryness Serafin: 20 Diet Order: Regular Estimated Energy Needs: ( Underweight, CBW) 8424-8422 kcals (30-35 kcals/ kg) 50-60g Pro (1.2-1.3 g/kg) 5880-0545 ml (30-35 ml/kg) Current Diet Order/ Nutrition Support Regular Pertinent Medications Maalox (PRN), MOM (PRN), Theragran Pertinent Labs POC Glucose (last 24 hours) 113 4/9: Ca 8.3, GFR 55, Alb 3.1 Nutritional Hx/Data Height 1.6 m Height (Calculated Centimeters) 160.0 Current Weight (lbs) 44.452 kg Weight (Calculated Kilograms) 44.5 Weight (Calculated Grams) 02689.1 [place] Body Weight 124 LB (56.36 kg) % [place] Body Weight 79 Body Mass Index (BMI) 17.3 Weight Status Underweight GI Symptoms Last BM 12/14 x1 Skin Integrity/Comment: Skin: WNL, Intact, dryness Serafin: 20 Recommend adding fish oil to medication regimen d/t dry and scaly skin. Current %PO Fair (50-74%) Estimated Nutritional Goals BEE in Kcals: Using Current wt Calories/Kcals/Kg 30-35 Kcals Calculated 5415-4370 Protein: Using Current wt Protein g/k.2-1.3 Protein Calculated 50-60 Fluid: ml 1392-1538 ml (30-35 ml/kg) Nutritional Problem 2. Problem Problem Moderate to Mild Malnutrition Etiology r/t inadequate energy and protein intake with lack of nutrient dense foods Signs/Symptoms: aeb mild to moderate muscle and fat wasting noted on exam with some clavicle, Acromion, and kneecap protrusion, slightly visible ribs, and Less-developed bulb of posterior calf muscle, and dry , scaly skin. 1. Problem Problem Underweight Etiology r/t consistent energy underconsumption Signs/Symptoms: aeb BMI <18.50 (17.36). Malnutrition Alert Body Fat Depletion (Non-Severe) Mild Depletion Muscle Mass (Non-Severe) Mild Depletion Fluid Accumulation (N/A) N/A Is there a minimum of two criteria Yes selected? Query Text:Check all the applicable criteria. A minimum of two criteria are recommended for diagnosis of either severe or non-severe malnutrition. Malnutrition Related to Morbid Obesity Malnutrition related to morbid obesity No Intervention/Recommendation Comments 1.Continue Regular diet as tolerated. 2.Continue Ensure Enlive TID. 3.Weekly weights. 4. Recommend adding fish oil to medication regimen. Expected Outcomes/Goals Expected Outcomes/Goals 1.PO intake to meet 75% of estimated nutritional needs. 2.Gradual weight gain (0.5-1.0 Lb/week) trending toward IBW preferred. 3.Monitor PO intake, wt, nutrition related labs, and skin integrity. 4.F/U as moderate risk in 3-5 days, 12/19-12/21
--- NOTE | 2020-01-01 23:05 | Progress Notes ---
DATE: 01/01/2020 SUBJECTIVE: The patient was interviewed. Case was discussed with staff. Chart and records were reviewed. Per the staff, the patient has been more positive, but continues to be restless. The patient does make some paranoid statements, stating that "rotten food is poisonous." The patient otherwise is tolerating medications well. No side effects noted. The patient continues to have no placement options at this time. MENTAL STATUS EXAMINATION: The patient appears his stated age, somewhat unkempt, limited cooperation smiling. [place] thinking. No suicidal or homicidal thoughts, no hallucinations, somewhat paranoid, but improving. Alert and oriented x 2. Insight, judgment and impulse control are poor. ASSESSMENT: This is a 64-year-old male, admitted to [facility] on 12/14/2019 after the patient became aggressive at home and aggressive towards his family. The patient continues with paranoia, but overall improving, tolerating his medications well. Continues to have episodes of mood swing, but overall improving, more positive, but continues to have no plan for self-care. PLAN: We will continue the patient's current hospitalization. We will continue medications as prescribed. We will encourage the patient to verbalize his needs. Encourage the patient will participate in group and milieu therapy. [facility]# [id number]
[2020-01-02] MEDS: INSULIN LISPRO 100 UNIT/ML VIAL SUBQ SCH (06:38)
--- NOTE | 2020-01-02 06:50 | Progress Notes ---
DATE: 01/02/2020 SUBJECTIVE: A 64-year-old male, currently in the hospital under the care of Dr. Bingham admitted because he became aggressive at home, aggressive towards family, paranoid, ongoing episodes of mood swings, irritability, generally calmer, per staff. Fair orientation, hyperactive, anxious, claiming the food here is a place making him lose his appetite, ongoing concerns were paranoias, currently on dosing of Risperdal. Time was spent with the patient evaluating the content of any delusions, discussion with nursing staff. Medications were reviewed. Labs were reviewed. Vitals were reviewed. Evaluated for any medication side effects. No EPS, no akathisia. MENTAL STATUS EXAMINATION: Stated age, sleeping, but arousable. Ongoing delusional thinking, talking about the food. Poor impulse control. ASSESSMENT: A 64-year-old male still with some outbursts, concerns for ongoing psychosis. PLAN: We will continue inpatient monitoring. Consider dose titration of Risperdal. [facility]# [id number]
[2020-01-02] MEDS: Multivitamin Tab PO SCH (08:50)
[2020-01-02] MEDS: Fish Oil 1,000 MG SGL PO SCH (08:50)
--- NOTE | 2020-01-02 13:10 | Internal Medicine Prog Note ---
Internal Medicine Subjective - Subjective Service Date: 01/02/20 Patient seen and examined:: without staff Patient is:: awake, verbal, interactive, ambulating Per staff patient has:: no adverse event, no episodes of fall (ambulating on floor extensively) Internal Medicine Objective - Results Recent Labs: Laboratory Last Values POC Glucose 99 MG/DL (70 - 105) 01/02/20 05:45 - Physical Exam Vitals and I&O: Vital Signs Temp 97.0 F 01/02/20 06:05 Pulse 78 01/02/20 06:05 Resp 20 01/02/20 06:05 BP 142/96 01/02/20 06:05 Pulse Ox 99 01/02/20 06:05 Intake & Output 01/01/20 01/02/20 01/02/20 18:59 06:59 18:59 Intake Total 900 480 Balance 900 480 Intake: Oral 900 480 Other: # Voids 2 # Bowel Movements 1 Active Medications: Current Medications Acetaminophen (Tylenol) 650 mg PO Q4H PRN PRN Reason: Pain (Mild 1-3) Stop: 02/12/20 21:07 Last Admin: 12/31/19 17:59 Dose: 650 mg Al Hydrox/Mg Hydrox/Simethicone (Maalox) 30 ml PO Q4HR PRN PRN Reason: GI DISTRESS Stop: 02/12/20 21:07 Dextrose (Glutose 40%) 18.75 gm PO PRN PRN PRN Reason: BS Below 70 if tolerate po Stop: 02/15/20 19:44 Fish Oil (Gazelle 3) 1,000 mg PO DAILY PILLO Stop: 02/16/20 08:59 Last Admin: 01/02/20 08:50 Dose: 1,000 mg Glucagon (Glucagen) 1 mg IM PRN PRN PRN Reason: BS Below 70 if not tolerate po Stop: 02/15/20 19:44 Insulin Human Lispro (Humalog) 0 unit SUBQ QDAC PILLO; Protocol Stop: 02/29/20 07:29 Last Admin: 01/02/20 06:38 Dose: Not Given Lorazepam (Ativan) 0.5 mg PO Q6HR PRN; Protocol PRN Reason: Anxiety Stop: 02/20/20 11:06 Last Admin: 01/01/20 21:41 Dose: 0.5 mg Magnesium Hydroxide (Milk Of Magnesia) 30 ml PO HS PRN PRN Reason: Constipation Multivitamins/Vitamin C (Theragran) 1 tab PO DAILY PILLO Stop: 02/13/20 08:59 Last Admin: 01/02/20 08:50 Dose: 1 tab Risperidone (Risperdal) 0.75 mg PO BID PILLO; Protocol Stop: 02/25/20 16:59 Last Admin: 01/02/20 08:50 Dose: 0.75 mg Zolpidem Tartrate (Ambien) 5 mg PO HS PRN PRN Reason: Insomnia Stop: 02/18/20 20:46 Last Admin: 01/01/20 20:32 Dose: 5 mg General: NAD HEENT: NC/AT, EOMI Neck: Supple, No JVD Lungs: CTAB Cardiovascular: RRR, Normal S1, Normal S2 Abdomen: soft, non-tender Extremities: clear Neurological: alert Internal Medicine Assmt/Plan - Assessment Assessment: 1. Herpes lesion of lip 2. Hx of polysubstance abuse 3. DM/HTN 4. Agitation - Plan Plan: continue same meds Nutritional Asmnt/Malnutr-PDOC - Dietary Evaluation Malnutrition Findings (Please click <Entered> for more info): Nutritional Asmnt/Malnutrition Start: 12/15/19 12: 32 Text: Status: Complete Freq: Protocol: Document 12/17/19 16:47 CRISS (Rec: 12/17/19 16:53 [email or web address] [id number] [id number]) Nutritional Asmnt/Malnutrition Patient General Information Nutritional Screening High Risk Diagnosis Psychosis Pertinent Medical Hx/Surgical Hx DM, HTN Subjective Information Pt is currently eating an estimated 70% since admit date (x2 days) per Meal/Nutrition Activity Record. Dietary is currently providing an estimated 3000 kcals and 130 gm Pro. Per pt PO intake, this is providing an estimated 2100 kcals and 90 gm Pro, to meet 100+% kcal and 100+% Pro needs-adequate to promote/ support gradual weight gain. Visited pt in late afternoon. Pt stated he has been eating good and likes his strawberry shakes (Ensure). He stated he does want to gain some weight and is drinking the Ensure to get vitamins to help with his dry skin. Pt allowed me to perform a Nutrition focused Physical Examination while talking to him. Pt was very pleasant, talkative, and cooperative. Spoke with pt nurse Clements regarding exam results and recommendation to add fish oil to medication regimen to help with dry, scaly skin. Pt downgraded to moderate nutritional risk as pt is exceeding estimated nutritional needs, adequate to promote/support gradual weight gain. Head and Face (Mild to Moderate Malnutrition) Orbital region: slightly dark circles, somewhat hollow Buccal Region: Flat cheeks, minimal bounce Synagogue region: could not assess with hair Upper Body (Mild to Moderate Malnutrition) Clavicle Bone Region: Clavicle shows with some protrusion Acromion Bone Region: Acromion process slightly protruded, shoulders not square Ribs/Midaxillary Line (Mild to Moderate Malnutrition) Thoracic and Lumbar Region: Ribs are apparent with slightly visible depressions between them Lower Extremities (Mild to Moderate Malnutrition) Patellar Region: Kneecap is more prominent Posterior Calf Region: Less- developed bulb of muscle Hair, Nails and Skin Dry, scaly skin Hair and nails looked good Anthropometrics HT: 53 WT: 98 LB (44.55 kg) BMI: 17.36 (underweight) GI/ Skin Integrity GI: WNL, Soft, Flat, Non- tender BM: 12/14 x1 I/O: 400/Not Noted Skin: WNL, Intact, dryness Serafin: 20 Diet Order: Regular Estimated Energy Needs: ( Underweight, CBW) 7816-3608 kcals (30-35 kcals/ kg) 50-60g Pro (1.2-1.3 g/kg) 3085-1446 ml (30-35 ml/kg) Current Diet Order/ Nutrition Support Regular Pertinent Medications Maalox (PRN), MOM (PRN), Theragran Pertinent Labs POC Glucose (last 24 hours) 113 4/9: Ca 8.3, GFR 55, Alb 3.1 Nutritional Hx/Data Height 1.6 m Height (Calculated Centimeters) 160.0 Current Weight (lbs) 44.452 kg Weight (Calculated Kilograms) 44.5 Weight (Calculated Grams) 78384.1 [place] Body Weight 124 LB (56.36 kg) % [place] Body Weight 79 Body Mass Index (BMI) 17.3 Weight Status Underweight GI Symptoms Last BM 12/14 x1 Skin Integrity/Comment: Skin: WNL, Intact, dryness Serafin: 20 Recommend adding fish oil to medication regimen d/t dry and scaly skin. Current %PO Fair (50-74%) Estimated Nutritional Goals BEE in Kcals: Using Current wt Calories/Kcals/Kg 30-35 Kcals Calculated 1293-8373 Protein: Using Current wt Protein g/k.2-1.3 Protein Calculated 50-60 Fluid: ml 5238-5897 ml (30-35 ml/kg) Nutritional Problem 2. Problem Problem Moderate to Mild Malnutrition Etiology r/t inadequate energy and protein intake with lack of nutrient dense foods Signs/Symptoms: aeb mild to moderate muscle and fat wasting noted on exam with some clavicle, Acromion, and kneecap protrusion, slightly visible ribs, and Less-developed bulb of posterior calf muscle, and dry , scaly skin. 1. Problem Problem Underweight Etiology r/t consistent energy underconsumption Signs/Symptoms: aeb BMI <18.50 (17.36). Malnutrition Alert Body Fat Depletion (Non-Severe) Mild Depletion Muscle Mass (Non-Severe) Mild Depletion Fluid Accumulation (N/A) N/A Is there a minimum of two criteria Yes selected? Query Text:Check all the applicable criteria. A minimum of two criteria are recommended for diagnosis of either severe or non-severe malnutrition. Malnutrition Related to Morbid Obesity Malnutrition related to morbid obesity No Intervention/Recommendation Comments 1.Continue Regular diet as tolerated. 2.Continue Ensure Enlive TID. 3.Weekly weights. 4. Recommend adding fish oil to medication regimen. Expected Outcomes/Goals Expected Outcomes/Goals 1.PO intake to meet 75% of estimated nutritional needs. 2.Gradual weight gain (0.5-1.0 Lb/week) trending toward IBW preferred. 3.Monitor PO intake, wt, nutrition related labs, and skin integrity. 4.F/U as moderate risk in 3-5 days, 12/19-12/21
[2020-01-03] MEDS: INSULIN LISPRO 100 UNIT/ML VIAL SUBQ SCH (06:30)
[2020-01-03] MEDS: Multivitamin Tab PO SCH (08:42)
[2020-01-03] MEDS: Fish Oil 1,000 MG SGL PO SCH (08:42)
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
== END 2020-01-03 18:05 | disposition home or self-care (01) | DRG 885 ==
LOC: GERO 18:25
PROVIDERS: ADMIT Psychiatry & Neurology Psychiatry; ATTEND Psychiatry & Neurology Psychiatry
DX: F31.9 Bipolar disorder, unspecified (principal); F19.10 Other psychoactive substance abuse, uncomplicated; I10 Essential (primary) hypertension; E11.9 Type 2 diabetes mellitus without complications; R45.1 Restlessness and agitation; B00.1 Herpesviral vesicular dermatitis
CPT/HCPCS: 82948-90; 83036-90; 90899; G0410; Z7610